=== PATIENT | male | born 2000 | race African-American/Black ===

== ENCOUNTER 2022-04-02 21:50 | Emergency (ER) | payer MEDICAID ==
[~2022-04-02] VITALS: Ht 175.3 cm; Wt 57.0 kg
[2022-04-02 22:11] VITALS: BP 108/53
[2022-04-03] MEDS ORDERED: BISM-77 PO (01:56)
[2022-04-03] MEDS ORDERED: ONDA4TAB11 PO (01:56)
[2022-04-03] MEDS ORDERED: MAGNESIUM/ALUMINUM HYDROXIDE/SIMETHICONE 30ML UDC PO ONE (02:00)
[2022-04-03] MEDS ORDERED: ONDANSETRON 4MG ODT PO ONE (02:00)
== END 2022-04-03 02:18 | disposition home or self-care (01) ==
LOC: ER 21:50
DX: K52.9 Noninfective gastroenteritis and colitis, unspecified (principal); R11.2 Nausea with vomiting, unspecified
CPT/HCPCS: 99283; Q0162